=== PATIENT | female | born 1945 | race Caucasian/White ===

== ENCOUNTER 2022-02-16 11:01 | Inpatient (IN) | payer MEDICARE, BC ==
[2022-02-16 11:45] LABS: #Basophils 0.1 thou/uL (0.0-0.2); #Eosinphils 0.2 thou/uL (0.0-0.7); #Lymphocytes 2.5 thou/uL (1.20-3.40); #Monocytes 0.6 thou/uL (0.11-0.59); #Neutrophils 3.5 thou/uL (1.40-6.50); %Basophils 1.1 % (0.0-1.0); %Eosinophils 2.8 % (0.0-10.0); %Lymphocytes 36.8 % (21.0-51.0); %Monocytes 8.2 % (0.0-10.0); %Neutrophils 51.1 % (42.0-75.0); Hemoglobin 10.6 g/dL (12.0-16.0); Mean Corpuscular HGB CONC 32.2 g/dL (32.0-36.0); Mean Corpuscular Hemoglobin 31.8 pg (27.0-31.0); Mean Platelet Volume 7.3 fL (7.4-10.4); Platelet Count 289 thou/uL (130-400); RBC Distribution Width 12.6 % (11.5-14.5); Red Blood Cell (RBC) Count 3.33 mill/uL (4.20-5.40); White Blood Cell (WBC) Count 6.8 thou/uL (4.8-10.8)
[2022-02-16 12:00] LABS: Anion Gap 16 mmol/L (10-20); BUN (Urea Nitrogen) 12 mg/dL (9.8-20.1); Calc. Creatinine Clearance 0 mL/min (70-130); Carbon Dioxide 23 mmol/L (23-31); Chloride 103 mmol/L (98-107); Estimated GFR 70; Potassium 4.5 mmol/L (3.5-5.1); Sodium 137 mmol/L (136-145)
[2022-02-16 12:01] LABS: ALT (SGPT) 10 U/L (8-55); AST (SGOT) 13 U/L (5-34); Albumin 3.7 g/dL (3.4-4.8); Alkaline Phosphatase 58 U/L (40-110); Bilirubin, Total 0.3 mg/dL (0.2-1.2); Calcium 9.3 mg/dL (7.8-10.44); Globulin 2.9 g/dL (2.4-3.5); Glucose 105 mg/dL (83-110); Protein, Total 6.6 g/dL (5.8-8.1)
[2022-02-16 13:44] LABS: SARS-CoV-2 NAA Rapid Test Not Detected (NotDetected)
[2022-02-16] MEDS ORDERED: Acetaminophen 325 MG TAB PO PRN (13:59)
[2022-02-16] MEDS ORDERED: Ondansetron ODT 4 MG TAB PO PRN (13:59)
[2022-02-16] MEDS ORDERED: Ondansetron PF 4 MG/2 ML Vial IVP PRN (13:59)
[2022-02-16] MEDS ORDERED: hydrALAZINE 20 MG/ML VIAL SLOW IVP PRN (14:02)
[2022-02-16] MEDS ORDERED: Dextrose 50% Abboject 50 ML SYRINGE SLOW IVP PRN (14:03)
[2022-02-16] MEDS ORDERED: Insulin Regular 300 UNITS/3 ML VIAL SC PRN ×2 (14:03)
[2022-02-16] MEDS ORDERED: Dextrose 5% in Water 1,000 ML IV PRN (14:03)
[2022-02-16 15:07] LABS: Troponin I Less than 0.010 ng/mL (< 0.028)
[2022-02-16] MEDS ORDERED: Benzonatate 100 MG CAP PO PRN (16:15)
[2022-02-16] MEDS ORDERED: FLU VACC QS2022-23(65YR UP)/PF 240 MCG/0.7 ML SYRINGE IM ONE (17:45)
[2022-02-16 18:22] LABS: Troponin I Less than 0.010 ng/mL (< 0.028)
[2022-02-16] MEDS: guaiFENesin ER 600 MG TAB PO SCH (19:46)
[2022-02-16] MEDS: Rosuvastatin 20 MG TAB PO SCH (19:47)
[2022-02-16] MEDS: ALPRAZolam 0.25 MG TAB PO PRN (22:53)
[2022-02-17 05:27] LABS: #Eosinphils 0.3 thou/uL (0.0-0.7); #Lymphocytes 2.5 thou/uL (1.20-3.40); #Monocytes 0.7 thou/uL (0.11-0.59); #Neutrophils 3.8 thou/uL (1.40-6.50); %Basophils 0.2 % (0.0-1.0); %Eosinophils 3.5 % (0.0-10.0); %Lymphocytes 34.4 % (21.0-51.0); %Neutrophils 51.9 % (42.0-75.0); Hemoglobin 10.1 g/dL (12.0-16.0); Mean Corpuscular HGB CONC 32.4 g/dL (32.0-36.0); Mean Corpuscular Hemoglobin 31.8 pg (27.0-31.0); Mean Corpuscular Volume 98.3 fL (78.0-98.0); Mean Platelet Volume 7.6 fL (7.4-10.4); Platelet Count 261 thou/uL (130-400); RBC Distribution Width 12.7 % (11.5-14.5); Red Blood Cell (RBC) Count 3.19 mill/uL (4.20-5.40); White Blood Cell (WBC) Count 7.4 thou/uL (4.8-10.8)
[2022-02-17 05:45] LABS: Anion Gap 11 mmol/L (10-20); BUN (Urea Nitrogen) 12 mg/dL (9.8-20.1); Calc. Creatinine Clearance 0 mL/min (70-130); Calcium 9.3 mg/dL (7.8-10.44); Carbon Dioxide 25 mmol/L (23-31); Chloride 104 mmol/L (98-107); Estimated GFR 65; Glucose 124 mg/dL (83-110); Potassium 4.3 mmol/L (3.5-5.1); Sodium 136 mmol/L (136-145)
[2022-02-17] MEDS ORDERED: B6 PO SCH (09:00)
[2022-02-17] MEDS ORDERED: MANGAN PO SCH (09:00)
[2022-02-17] MEDS ORDERED: CALC PO SCH (09:00)
[2022-02-17] MEDS ORDERED: MAGNES PO SCH (09:00)
[2022-02-17] MEDS ORDERED: D3 PO SCH (09:00)
[2022-02-17] MEDS ORDERED: [UNRECOGNIZED DRUG - OTHER] PO SCH (09:00)
[2022-02-17] MEDS: Alogliptin 25 MG TAB PO SCH (09:19)
[2022-02-17] MEDS: Losartan 25 MG TAB PO SCH (09:19)
[2022-02-17] MEDS: Aspirin 81 mg Enteric Coated Tablet PO SCH (09:19)
[2022-02-17] MEDS: Clopidogrel Bisulfate 75 MG TAB PO SCH (09:20)
[2022-02-17] MEDS: guaiFENesin ER 600 MG TAB PO SCH ×2 (09:20→20:05)
[2022-02-17] MEDS: Hydrochlorothiazide 25 MG TAB PO SCH (09:20)
[2022-02-17] MEDS ORDERED: predniSONE 20 MG TAB PO SCH (12:00)
[2022-02-17] MEDS ORDERED: Azithromycin 500 MG in Sodium Chloride 0.9% 250 ML 250 ML IVPB SCH (12:00)
[2022-02-17 12:39] VITALS: BMI 30.2
[2022-02-17] MEDS ORDERED: cefTRIAXone\\ROCEPHIN 1 GM in Sodium Chloride 0.9% 100 ML IVPB SCH (13:00)
[2022-02-17] MEDS: Rosuvastatin 20 MG TAB PO SCH (20:05)
[2022-02-17] MEDS: ALPRAZolam 0.25 MG TAB PO PRN (22:16)
[2022-02-18 05:02] LABS: #Lymphocytes 1.3 thou/uL (1.20-3.40); #Monocytes 0.6 thou/uL (0.11-0.59); #Neutrophils 7.5 thou/uL (1.40-6.50); %Basophils 0.1 % (0.0-1.0); %Eosinophils 0.4 % (0.0-10.0); %Lymphocytes 13.7 % (21.0-51.0); %Monocytes 5.8 % (0.0-10.0); Hemoglobin 9.8 g/dL (12.0-16.0); Mean Corpuscular HGB CONC 32.6 g/dL (32.0-36.0); Mean Corpuscular Hemoglobin 32.2 pg (27.0-31.0); Mean Corpuscular Volume 98.9 fl (78.0-98.0); Mean Platelet Volume 7.6 fL (7.4-10.4); Platelet Count 293 thou/uL (130-400); Red Blood Cell (RBC) Count 3.03 mill/uL (4.20-5.40); White Blood Cell (WBC) Count 9.4 thou/uL (4.8-10.8)
[2022-02-18 05:21] LABS: Anion Gap 11 mmol/L (10-20); BUN (Urea Nitrogen) 15 mg/dL (9.8-20.1); Calc. Creatinine Clearance 75 mL/min (70-130); Calcium 8.8 mg/dL (7.8-10.44); Carbon Dioxide 24 mmol/L (23-31); Chloride 102 mmol/L (98-107); Estimated GFR 74; Glucose 161 mg/dL (83-110); Potassium 3.6 mmol/L (3.5-5.1); Sodium 133 mmol/L (136-145)
[2022-02-18] MEDS ORDERED: predniSONE 50 MG TAB PO SCH (08:00)
[2022-02-18 08:44] VITALS: TEMP 98.2
[2022-02-18] MEDS: Aspirin 81 mg Enteric Coated Tablet PO SCH (08:58)
[2022-02-18] MEDS: Clopidogrel Bisulfate 75 MG TAB PO SCH (08:59)
[2022-02-18] MEDS: Alogliptin 25 MG TAB PO SCH (08:59)
[2022-02-18] MEDS: Hydrochlorothiazide 25 MG TAB PO SCH (09:01)
[2022-02-18] MEDS: guaiFENesin ER 600 MG TAB PO SCH (09:02)
[2022-02-18] MEDS: Losartan 25 MG TAB PO SCH (09:03)
[2022-02-18 11:46] VITALS: BP 183/77
== END 2022-02-18 12:55 | disposition home or self-care (01) | DRG 191 ==
LOC: SUATTDRO 11:01 → ERS 11:01 → 2SW 15:00 → OBSVTOIN 02-17 11:01
PROVIDERS: ADMIT Hospitalist; ATTEND Internal Medicine
DX: J44.1 Chronic obstructive pulmonary disease with (acute) exacerbation (principal); J98.11 Atelectasis; Z20.822 Contact with and (suspected) exposure to COVID-19; Z23 Encounter for immunization; I25.10 Atherosclerotic heart disease of native coronary artery without angina pectoris; E11.22 Type 2 diabetes mellitus with diabetic chronic kidney disease; E78.5 Hyperlipidemia, unspecified; F12.10 Cannabis abuse, uncomplicated; I08.2 Rheumatic disorders of both aortic and tricuspid valves; Z88.1 Allergy status to other antibiotic agents; Z95.5 Presence of coronary angioplasty implant and graft; Z95.828 Presence of other vascular implants and grafts; Z90.710 Acquired absence of both cervix and uterus; Z98.890 Other specified postprocedural states; Z87.891 Personal history of nicotine dependence; Z79.899 Other long term (current) drug therapy; Z79.84 Long term (current) use of oral hypoglycemic drugs; Z79.82 Long term (current) use of aspirin; Z79.02 Long term (current) use of antithrombotics/antiplatelets
CPT/HCPCS: 36415; 36416; 71045; 80048; 80053; 82607; 83880; 84484; 85025; 85379; 87070; 87205; 90471; 90662; 93005; 93306; 94640; 94760; G0008; G0378; J0456; J0696; J3490; J7050; J7512; J7620

== ENCOUNTER 2023-02-23 10:34 | Emergency (ER) | payer MEDICARE, BC ==
[2023-02-23 11:51] LABS: #Basophils 0.1 thou/uL (0.0-0.2); #Eosinphils 0.2 thou/uL (0.0-0.7); #Monocytes 0.7 thou/uL (0.11-0.59); #Neutrophils 5.6 thou/uL (1.40-6.50); %Basophils 0.6 % (0.0-1.0); %Eosinophils 1.8 % (0.0-10.0); %Lymphocytes 20.7 % (21.0-51.0); %Neutrophils 68.5 % (42.0-75.0); Hematocrit 35.9 % (36.0-47.0); Hemoglobin 12.4 g/dL (12.0-16.0); Mean Corpuscular HGB CONC 34.5 g/dL (32.0-36.0); Mean Corpuscular Hemoglobin 31.1 pg (27.0-31.0); Mean Platelet Volume 10.1 fL (7.4-10.4); Platelet Count 338 10x3/uL (130-400); RBC Distribution Width 13.1 % (11.5-14.5); Red Blood Cell (RBC) Count 3.99 mill/uL (4.20-5.40); White Blood Cell (WBC) Count 8.2 10x3/uL (4.8-10.8)
[2023-02-23 11:52] LABS: Bilirubin Negative (Negative); Blood, Urine Negative (Negative); CAUTI Indications for Culture Dysuria,urgency,freq; Clarity Clear (Clear); Glucose, Urine (Dipstick) Normal (Negative); Ketone, Urine Negative (Negative); Leukocyte 75 Leu/uL (Negative); Nitrite Negative (Negative); Protein, Urine (Dipstick) 10 mg/dL (Neg-Trace); RBC/HPF 0-3 HPF (0-3); Specific Gravity, Urine 1.014 (1.002-1.036); Squamous Epithelial 0-3 HPF (0-3); Urobilinogen Normal mg/dL (Less than 2)
[2023-02-23 11:59] LABS: Bacteria/HPF 1+ HPF (None Seen); Urine Culture Reflex Yes Yes
[2023-02-23 12:19] LABS: ALT (SGPT) 16 U/L (8-55); AST (SGOT) 17 U/L (5-34); Albumin 4.3 g/dL (3.4-4.8); Alkaline Phosphatase 61 U/L (40-110); Anion Gap 11 mmol/L (10-20); BUN (Urea Nitrogen) 20 mg/dL (9.8-20.1); Bilirubin, Total 0.3 mg/dL (0.2-1.2); Calc. Creatinine Clearance 0 mL/min (70-130); Calcium 12.1 mg/dL (7.8-10.44); Carbon Dioxide 30 mmol/L (23-31); Chloride 97 mmol/L (98-107); Estimated GFR 38; Globulin 3.1 g/dL (2.4-3.5); Glucose 140 mg/dL (83-110); Lipase 121 U/L (8-78); Potassium 3.4 mmol/L (3.5-5.1); Protein, Total 7.4 g/dL (5.8-8.1); Sodium 135 mmol/L (136-145)
[2023-02-23 12:21] LABS: Troponin I Less than 0.010 ng/mL (< 0.028)
[2023-02-23] MEDS ORDERED: cefTRIAXone (ROCEPHIN) 1 GM VIAL ONE (13:53)
[2023-02-23] MEDS ORDERED: Lidocaine 1% MPF 2 ML VIAL ONE (13:54)
== END 2023-02-23 13:52 | disposition home or self-care (01) ==
LOC: ERS 10:34
DX: N39.0 Urinary tract infection, site not specified (principal); E83.52 Hypercalcemia; I25.10 Atherosclerotic heart disease of native coronary artery without angina pectoris; E11.9 Type 2 diabetes mellitus without complications; E78.5 Hyperlipidemia, unspecified; I10 Essential (primary) hypertension
CPT/HCPCS: 71045; 74177; 80053; 81001; 83690; 83880; 84484; 85025; 87086; 93005; 96360; 96372; J0696

== ENCOUNTER → 2023-04-07 | Outpatient (CLI) | payer MEDICARE, BC | LOC: PET 12:30 | PROVIDERS: ATTEND Nurse Practitioner Gerontology | DX: N18.9 Chronic kidney disease, unspecified (principal); K92.1 Melena; E83.52 Hypercalcemia; R94.4 Abnormal results of kidney function studies | CPT/HCPCS: 78815; A9552 ==

== ENCOUNTER 2024-01-29 10:59 | Outpatient (CLI) | payer MEDICARE, BC | END 2024-01-29 11:00 | disposition home or self-care (01) | LOC: DTY/OP 10:59 | PROVIDERS: ATTEND Internal Medicine | DX: E11.65 Type 2 diabetes mellitus with hyperglycemia (principal) | CPT/HCPCS: 97802 ==